=== PATIENT | female | born 1975 | race Caucasian/White ===

== ENCOUNTER 2023-12-05 00:25 | Emergency (ER) | payer MEDICAID ==
[~2023-12-05] VITALS: Ht 160 cm; Wt 78.9 kg
[2023-12-05 00:38] VITALS: BP 165/82; PULSE 83; RESP 18; TEMP 98.3; O2SAT 100
[2023-12-05 02:29] VITALS: BP 165/82; PULSE 83; RESP 18; TEMP 98.3
[2023-12-05] MEDS ORDERED: CEPH-588 PO (02:49)
[2023-12-05] MEDS ORDERED: IBUP-2213 PO (02:49)
[2023-12-05 02:58] VITALS: O2SAT 100
== END 2023-12-05 03:03 | disposition home or self-care (01) ==
LOC: MED 00:25
DX: L03.115 Cellulitis of right lower limb (principal); Z98.890 Other specified postprocedural states
CPT/HCPCS: 99283